=== PATIENT | female | born 1945 | race Caucasian/White ===

== ENCOUNTER 2021-02-13 12:51 | Outpatient (CLI) | payer MEDICARE ==
[2021-02-13 14:52] LABS: #Eosinphils 0.3 10x3/uL (0.0-0.5); #Monocytes 0.6 10x3/uL (0.0-1.1); #Neutrophils 7.3 10x3/uL (1.5-8.4); %Basophils 0.4 % (0.0-2.0); %Lymphocytes 17.6 % (18.0-47.0); %Monocytes 5.9 % (0.0-10.0); %Neutrophils 72.3 % (40.0-75.0); Hemoglobin 11.8 g/dL (12.0-15.5); Mean Corpuscular HGB CONC 31.1 g/dL (32.0-36.0); Mean Corpuscular Hemoglobin 28.5 pg (27.0-33.0); Mean Corpuscular Volume 91.8 fl (81.6-98.3); Mean Platelet Volume 11.5 fl (7.4-10.4); Platelet Count 243 10x3/uL (150-450); RBC Distribution Width 14.6 % (11.5-14.5); Red Blood Cell (RBC) Count 4.14 10x6/uL (3.90-5.03); White Blood Cell (WBC) Count 10.1 10x3/uL (3.5-10.5)
[2021-02-13 14:58] LABS: INR-International Normal Ratio 0.9; PTT 28.4 sec (22.0-33.0); Prothrombin Time 10.4 sec (9.5-12.1)
[2021-02-13 14:59] LABS: Anion Gap 16 mmol/L (10-20); BUN (Urea Nitrogen) 22 mg/dL (9.8-20.1); Calc. Creatinine Clearance 0 mL/min (70-130); Calcium 9.7 mg/dL (7.8-10.44); Carbon Dioxide 26 mmol/L (23-31); Chloride 106 mmol/L (98-107); Glucose 128 mg/dL (83-110); Potassium 4.3 mmol/L (3.5-5.1); Sodium 144 mmol/L (136-145)
[2021-02-14 00:33] LABS: SARS-CoV-2 PCR by NAA Not Detected (NotDetected)
== END 2021-02-13 12:52 | disposition home or self-care (01) ==
LOC: CSHLAB 12:51
PROVIDERS: ATTEND Specialist
DX: Z01.812 Encounter for preprocedural laboratory examination (principal); Z20.822 Contact with and (suspected) exposure to COVID-19
CPT/HCPCS: 80048; 85025; 85610; 85730; 87635; U0003; U0005